=== PATIENT | female | born 2000 | race Two or more races ===

== ENCOUNTER 2022-04-24 07:44 | Emergency (ER) | payer SELFPAY ==
[~2022-04-24] VITALS: Ht 152.4 cm; Wt 51.0 kg
[2022-04-24] MEDS ORDERED: FLUORESCEIN SODIUM 1MG/STRIP RIGHTEYE ONE (08:30)
[2022-04-24] MEDS ORDERED: TETRACAINE 0.5% OPHTH DROPS 4ML RIGHTEYE ONE (08:30)
[2022-04-24] MEDS ORDERED: ACETAMINOPHEN 325MG TABLET PO ONE (08:45)
[2022-04-24] MEDS ORDERED: IBUP-2028 MT (09:49)
[2022-04-24] MEDS ORDERED: OFLO5DRO3 RIGHTEYE (09:49)
[2022-04-24 10:15] VITALS: BP 112/74
== END 2022-04-24 10:15 | disposition home or self-care (01) ==
LOC: ER 08:23
DX: H57.11 Ocular pain, right eye (principal); H10.9 Unspecified conjunctivitis
CPT/HCPCS: 99283